=== PATIENT | male | born 1985 | race Caucasian/White ===

== ENCOUNTER 2021-07-21 12:39 | Outpatient (CLI) | payer OTHER, SELFPAY ==
--- NOTE | ~2021-07-21 | XR_ITS ---
XR shoulder LT min 2V DATE: 07/21/2021 13:09 INDICATION: Left shoulder pain TECHNIQUE: 4 views COMPARISON: 07/21/2021 left scapula FINDINGS: No fracture or dislocation, periosteal reaction or bone destruction. Normal alignment at th e acromioclavicular and glenohumeral joints. No abnormal soft tissue calcification. IMPRESSION: Negative Reviewed, dictated and finalized at location B. IMPRESSION: Negative
--- NOTE | ~2021-07-21 | XR_ITS ---
XR scapula LT DATE: 07/21/2021 13:09 INDICATION: Left shoulder pain, neck pain TECHNIQUE: Neer and AP views COMPARISON: None FINDINGS: No fracture or dislocation, periosteal reaction or bone destruction or abnormal soft tissue calcification. IMPRESSION: Negative Reviewed, dictated and finalized at location B. IMPRESSION: Negative
--- NOTE | ~2021-07-21 | XR_ITS ---
EXAMINATION:XR cervical spine 4-5V DATE: 07/21/2021 13:09 INDICATION: Neck pain TECHNIQUE: AP, lateral, lateral swimmers and odontoid views of the cervical spine are provided. COMPARISON: None FINDINGS: There is 1 mm of retrolisthesis of C5 on C6. The odontoid is intact. No fracture is identif ied. The vertebral body heights are maintained. There is mild loss of intervertebral disc space heigh t at C5-6 and C6-7. Prevertebral soft tissues are normal. IMPRESSION: 1. Mild cervical spondylosis without acute findings. Reviewed, dictated and finalized at location A.
== END 2021-07-21 12:40 | disposition home or self-care (01) ==
LOC: ANHIMG 12:47
PROVIDERS: PCP Emergency Medicine; Visit Provider Emergency Medicine
DX: M54.2 Cervicalgia (principal); M25.512 Pain in left shoulder; M47.812 Spondylosis without myelopathy or radiculopathy, cervical region
CPT/HCPCS: 72050; 73010; 73030